=== PATIENT | male | born 1960 | race Caucasian/White ===

== ENCOUNTER 2018-03-02 05:32 | Inpatient (IN) ==
[2018-03-02] MEDS ORDERED: Chlorhexidine 4% Topical 120 APPLIC/120 ML Bottle TOPICAL SCH (06:30)
[2018-03-02] MEDS ORDERED: Metoprolol Tartrate 25 MG Tablet PO ONE (06:30)
[2018-03-02] MEDS ORDERED: Chlorhexidine Gluconate 2% 1 Pack (2 Cloths) TOPICAL ONE (06:30)
[2018-03-02] MEDS ORDERED: Sodium Chlor 0.9% Inj 500 ML IV.CONT ONE (06:30)
[2018-03-02] MEDS ORDERED: Ketamine Inj 50 MG/5 ML Syringe IV.PUSH ONE (06:53)
[2018-03-02] MEDS ORDERED: Famotidine PF Inj 20 MG/2 ML Vial ONE (06:59)
[2018-03-02] MEDS ORDERED: ceFAZolin 2 GM Premix Inj 2 GM/50 ML PIGGYBACK IV.SIG SCH (07:00)
[2018-03-02] MEDS ORDERED: Vancomycin Inj 1,000 MG in Sodium Chlor 0.9% Inj 250 ML IV.SIG SCH (07:00)
[2018-03-02] MEDS ORDERED: Neostigmine Inj 5 MG/5 ML Syringe IV.PUSH ONE (07:14)
[2018-03-02] MEDS ORDERED: Lidocaine PF 1% Inj 5 ML Syringe OTHER ONE (07:14)
[2018-03-02] MEDS ORDERED: Phenylephrine/NS 1000 MCG/10ML Syringe IV.PUSH ONE (07:14)
[2018-03-02] MEDS ORDERED: Glycopyrrolate Inj 1 MG/5 ML Syringe IV.PUSH ONE (07:14)
[2018-03-02] MEDS ORDERED: Famotidine PF Inj 20 MG/2 ML Vial IV.PUSH ONE (07:30)
[2018-03-02] MEDS ORDERED: Sodium Chlor 0.9% Inj 40 ML, Bupivacaine Liposo PF 1.3% Inj 20 ML P-ARTICULR SCH ×2 (08:00)
[2018-03-02] MEDS ORDERED: SODIUM CHLOR 0.9% IV.SIG SCH (08:00)
[2018-03-02] MEDS ORDERED: TRANEXAMIC ACID IV.SIG SCH (08:00)
[2018-03-02] MEDS ORDERED: Bupivacaine/Epinephrine Inj 0.25% 50 ML Vial ONE (08:07)
[2018-03-02] MEDS ORDERED: Bisacodyl 10 MG Supp RECTAL PRN (09:10)
[2018-03-02] MEDS ORDERED: Post-op Orders (for Pharmacy) OTHER STA (09:10)
--- NOTE | 2018-03-02 09:16 | P.DCO ---
- Physical Therapy Physical Therapy: Gait training, Transfer training, bed to chair Hip: Total hip, Protocol: Right Right Lower Extremity Weight Bearing: Weight bearing as tolerated Left Lower Extremity Weight Bearing: Weight bearing as tolerated - Nursing RN: 3 days/week x 2 weeks Dressing changes: Do not change dressing Additional instructions: aspirin 81 mg bid x 4 weeks dvt prop wear knee high TEDS during day time, may take off at night time - Certification Need for Home Health services: I have seen patient Selvin Butler on 03/02/18. My clinical findings support the need for the requested home health care services because: Need for Home Health Services: Deconditioned with increased weakness Homebound Certification: I certify that my clinical findings support that this patient is homebound because: Homebound Certification: Post-op weakness
--- NOTE | 2018-03-02 09:18 | P.OP ---
- Preoperative Diagnosis (1) Osteoarthritis of right hip - Postoperative Diagnosis (1) Osteoarthritis of right hip Date of procedure: 03/02/18 Procedure: Right total hip replacement arthroplasty, direct anterior exposure Anesthesia: GETA Surgeon: Sebastian Zabala MD Wire Threader: Ricardo Zabala MD Operation and Findings: EBL: 350 cc INDICATION: This patient is a 58-year-old white male with acetabular dysplasia and severe osteoarthritis of the right hip. Despite extensive conservative care , the patient continued to be painful. He presents for surgical treatment. NOTE: Ricardo Zabala MD was present for the entire surgical procedure as my engineering assistant. In my medical opinion his skill and care was necessary for the proper management of this patient. COMPONENTS: COMPANY: [employer] CUP: Desha, 54 mm, 100 series STEM: Corail, size 13, high offset HEAD: Ceramic, 32 mm, +5 PLASTIC: Altrex, 32 mm, neutral PROCEDURE: This patient was brought to the operating room and anesthetized in the supine position. The patient was positioned on the Branch table with the operative leg extended and the contralateral leg held position. The hip and leg was scrubbed with alcohol followed by Hibiclens followed by ChloraPrep and draped sterilely in the clean air suite. Preoperative fluoroscopic images were utilized. A templating x-ray was obtained and printed to be used during the case. A timeout was done and antibiotics were given within a routine time window. A 4 inch incision was made starting 2 cm distal and 2 cm lateral to the anterior superior iliac spine. The tensor fascia ninfa fascia was identified and opened longitudinally in line with the incision. Deep retraction allowed good visualization in the interval between the tensor fascia ninfa and the rectus and this was opened further. The posterior fascia was opened. Crossing vessels were coagulated appropriately. The anterior aspect of the hip capsule was identified. Retractors were placed above and below the capsule. The capsule was opened longitudinally. Stay sutures were utilized creating flaps for the anterior capsule. The femoral neck was cut at the right location and completed with an oscillating saw. The head and neck was removed and taken to the back table. The leg was externally rotated 60 degrees and traction placed on the extremity. The labrum was excised. A portion of the capsule was excised. Visibility was excellent. Retractors were positioned. Starting 6 mm from the final size reamer, we began reaming up to 1 mm from the anticipated size. This was visualized under fluoroscopy. A trial cup was positioned. This also was visualized under fluoroscopy and minor adjustments were made. The final preparation with a 54 reamer was utilized. The final cup was positioned in approximately 40 degrees of abduction and 20 degrees of forward flexion. This is visualized under fluoroscopy and was seated into the final position. Position was very satisfactory. A single hole eliminator was positioned followed by the plastic liner. The final solution was excellent. Traction was let off. The leg was brought into neutral rotation. A lifting took was positioned underneath the greater trochanter and proximal femur. The leg was maximally X rotated and the foot drop to the floor across midline. Retractors were positioned. A box osteotome was used to gain entrance into the top of the femur. The canal was probed with a finder to ensure that we are within the canal. Successive broaching up to the final stem size was accomplished. Trial reduction showed excellent balancing. Adjustments were made. The wound was irrigated copiously and the canal irrigated. The final stem was inserted in proper orientation. Trial again was trialed and the final head side was impacted. The hip was reduced and with 60 degrees of external rotation the leg to be dropped to the floor without evidence of anterior subluxation. Intraoperative x-rays were obtained. Local anesthesia was utilized for a field block including posterior capsule, inferior capsule, cephalad capsule, region of the greater trochanter, tensor fascia ninfa and subcutaneous tissue. The anterior capsule was repaired with interrupted #2 Tycron sutures. The fascia was run with 0 PDS on a loop. Subcutaneous tissue was approximated 2-0 Vicryl suture and skin with running intradermal 3-0 Vicryl followed by benzoin and Steri-Strips. A sterile dressing was applied. The patient was awakened and taken to the recovery room in satisfactory condition FINDINGS: There was severe osteoarthritis of the right hip. A large effusion was noted. The final solution appeared to be excellent.
[2018-03-02] MEDS ORDERED: fentaNYL Citrate Inj 100 MCG/2 ML Ampul ONE ×2 (09:43)
--- NOTE | 2018-03-02 09:44 | XR ---
EXAM DATE: 03/02/2018 12:00 AM EDT AGE/SEX: 58 years / Male INDICATIONS: Right anterior hip replacement. CLINICAL DATA: This is the patient's initial encounter. Patient reports that signs and symptoms have been present for 1 day and indicates a pain score of Nonresponsive. MEDICAL/SURGICAL HISTORY: Non-responsive. Non-responsive. COMPARISON: No prior exams available for comparison. FINDINGS: 2 fluoroscopic images demonstrate right hip arthroplasty in anatomic alignment. Arthroplasty componen ts appear intact and well-positioned. No significant bony fracture. CONCLUSION: 1. Right hip arthroplasty in anatomic alignment without fracture. Electronically signed by: Armando Beltrán MD 03/02/2018 9:43 AM EDT
[2018-03-02] MEDS ORDERED: *morphine SULFATE 10 MG/ML PERIprocedure ONLY ONE (09:45)
--- NOTE | 2018-03-02 20:01 | ECG ---
Date Performed: 03/02/2018 Time Performed: 06:26:50 PTAGE: 58 years EKG: Sinus rhythm NORMAL ECG PREVIOUS TRACING : 07/01/2012 11.48 Since the previous tracing, no significant change noted DOCTOR: Mason Mcdaniel Interpretating Date/Time 03/02/2018 19:59:25
[2018-03-02] MEDS: Morphine Inj 4 MG/ML Vial IV.PUSH PRN (21:01)
[2018-03-02] MEDS: Senna/Docusate Sodium 8.6/50 MG Tablet PO SCH (21:03)
[2018-03-03] MEDS: Morphine Inj 4 MG/ML Vial IV.PUSH PRN (03:32)
--- NOTE | 2018-03-03 07:04 | P.PNOP ---
Subjective Interval history: pt doing well, post operative hip pain would like to be discharged today Physical Exam Vital signs: Vital Signs 03/02/18 09:38 03/02/18 09:45 03/02/18 10:00 Temperature 97.6 F Pulse Rate 81 89 74 Respiratory Rate 19 19 8 L Blood Pressure 179/88 H 178/86 H 145/72 H Pulse Oximetry 93 L 93 L 94 L 03/02/18 10:30 03/02/18 12:00 03/02/18 12:03 Temperature 97.7 F 97.4 F L Pulse Rate 92 H 86 Respiratory Rate 11 L 12 18 Blood Pressure 157/79 H 139/73 Pulse Oximetry 95 96 03/02/18 15:56 03/02/18 16:00 03/02/18 20:00 Temperature 98 F 98.4 F Pulse Rate 78 95 H Respiratory Rate 18 13 18 Blood Pressure 133/76 122/75 Pulse Oximetry 95 95 03/03/18 00:00 03/03/18 04:00 Temperature 98.6 F 98.8 F Pulse Rate 88 83 Respiratory Rate 18 18 Blood Pressure 167/81 H 152/75 H Pulse Oximetry 95 95 Intake & Output 03/02/18 03/02/18 03/03/18 06:59 18:59 06:59 Intake Total 2788.71 / 2788.71 1000 / 1000 Output Total 350 / 350 Balance 2438.71 / 2438.71 1000 / 1000 Weight 87.1 kg 87.1 kg 96.5 kg Intake: IV 608.71 / 608.71 100 / 100 Cyklokapron Inj 871 MG In NS 108.71 / 108.71 Inj 100 ML @ 200 mls/hr IV.SIG ONCE KIAN Rx#:[id number] Vancomycin Inj 1,000 MG In NS 250 / 250 Inj 250 ML @ 250 mls/hr IV.SIG [employer] KIAN Rx#:[id number] Ancef 2 GM Premix Inj 2 gm In 50 / 50 50 ml @ 100 mls/hr IV.SIG ONCE KIAN Rx#:[id number] Ancef Inj 1,000 MG In NS Inj 200 / 200 100 / 100 100 ML @ 200 mls/hr IV.SIG Q6H KIAN Rx#:[id number] Oral 480 / 480 900 / 900 Anesthesia Amount 1700 / 1700 Output: Estimated Blood Loss 350 / 350 Other: # Voids 3 3 Date of Last Bowel Movement 03/02/18 03/02/18 # Bowel Movements 0 Weight On Admission 87.1 kg Narrative: right hip dressing dry and intact no calf tenderness +NVI Results - Labs Laboratory Results - last 24 hr 03/02/18 06:10 Blood Type A Negative Antibody Screen Negative MTS Gel Crossmatch See Detail - Imaging Impressions Hip X-Ray 03/02/18 00:00 CONCLUSION: 1. Right hip arthroplasty in anatomic alignment without fracture. Assessment and Plan - Assessment and Plan POD #1 s/p R JUICE aspirin 81 mg bid x 4 weeks dvt prop norco 7.5 rx escribed to pharmacy PT-WBAT orthopedically stable
[2018-03-03 08:13] LABS: Hematocrit 38.6 % (39.0-51.0)
[2018-03-03 08:52] VITALS: BP 148/84; PULSE 94; RESP 17; TEMP 98.2; O2SAT 91
[2018-03-03] MEDS: Senna/Docusate Sodium 8.6/50 MG Tablet PO SCH (08:56)
[2018-03-03] MEDS ORDERED: Duloxetine 60 MG DR Capsule PO SCH (09:00)
== END 2018-03-03 11:46 | disposition home health service (06) ==
LOC: HSDI 05:32 → N06 10:42
PROVIDERS: ADMIT Orthopaedic Surgery Orthopaedic Surgery of the Spine; ATTEND Orthopaedic Surgery Orthopaedic Surgery of the Spine